=== PATIENT | female | born 1970 | race Caucasian/White ===

== ENCOUNTER 2018-08-07 09:28 | Outpatient (CLI) | payer BC ==
--- NOTE | 2018-08-07 10:34 | RAD ---
Esophagram with tablet HISTORY: Dysphagia. Prior neck surgery. Fluoroscopy time 1.1 minutes. FINDINGS: Air contrast and barium evaluation shows normal anatomic appearance of the esophagus. There are postoperative changes of the lower cervical spine without significant indentation upon the posterior esophagus. Very small sliding hiatal hernia. Small amount of gastroesophageal reflux. No evidence of mass or obs truction. A barium tablet traversed the esophagus without holdup. IMPRESSION: Very small sliding hiatal hernia with small amount of gastroesophageal reflux. No evidenc e of obstruction.
== END 2018-08-07 09:29 | disposition home or self-care (01) ==
LOC: RAD 09:28
PROVIDERS: ATTEND Physician Assistant Medical
DX: R13.10 Dysphagia, unspecified (principal); K44.9 Diaphragmatic hernia without obstruction or gangrene; K21.9 Gastro-esophageal reflux disease without esophagitis
CPT/HCPCS: 74220